=== PATIENT | male | born 1995 | race Caucasian/White ===

== ENCOUNTER 2021-05-05 21:28 | Emergency (ER) | payer BC ==
--- OUTSIDE RECORDS SUMMARY | 2021-05-05 21:30 | XMS REPORT | Continuity of Care Document ---
:1995 Author Organization [facility] t Address [address] [place] [address] Care Team Providers Name Role Phone Lab, Fam Pob I Attending Clinician Unavailable Doctor Unassigned, Name Attending Clinician Unavailable Problems This patient has no known problems. Allergies, Adverse Reactions, Alerts This patient has no known allergies or adverse reactions. Medications This patient has no known medications. Procedures This patient has no known procedures. Encounters Start End Encounter Admission Attending Care Care Encounter Source Date/Time Date/Time Type Type Clinicians Facility Department ID 2020-05-31 2020-05-31 Laboratory Lab, Adc [facility] [id number] 13:25:34 13:45:34 Only Fam Pob I Health [id number] [place] [id number] Professio [phone] [address] 2020-05-31 2020-05-31 Letter Doctor LEAH [id number] 00:00:00 00:00:00 (Out) UnassignedTATY [id number] [facility] [phone] [id number] Results This patient has no known results.
--- NOTE | 2021-05-05 23:40 | ER ---
Nurse's Notes [facility] Name: Mateo Ramirez Age: 25 yrs Sex: Male : 1995 Arrival Date: 05/05/2021 Time: 21:31 Bed 18 Private MD: Diagnosis: Contusion of left great toe with damage to nail Presentation: 05/05 21:40 Chief complaint: Patient states: I was walking down the stairs then I missed the step rr5 then bump my left big toe at the bottom. denies LOC. Coronavirus screen: Client denies travel out of the [place] in the last 14 days. At this time, the client does not indicate any symptoms associated with coronavirus-19. Ebola Screen: Patient negative for fever greater than or equal to 101.5 degrees Fahrenheit, and additional compatible Ebola Virus Disease symptoms Patient denies exposure to infectious person. Patient denies travel to an Ebola-affected area in the 21 days before illness onset. Initial Sepsis Screen: Does the patient meet any 2 criteria? No. Patient's initial sepsis screen is negative. Does the patient have a suspected source of infection? No. Patient's initial sepsis screen is negative. Risk Assessment: Do you want to hurt yourself or someone else? Patient reports no desire to harm self or others. Onset of symptoms was May 05, 2021 at 17:30. 21:40 Method Of Arrival: Ambulatory rr5 21:40 Acuity: ANGELO 3 rr5 Historical: - Allergies: 21:42 No Known Allergies; rr5 - Home Meds: 21:42 None [Active]; rr5 - PMHx: 21:42 None; rr5 - PSHx: 21:42 None; rr5 - Immunization history:: Adult Immunizations not up to date, Client reports having NOT received the Covid vaccine. - Social history:: Smoking status: unknown. Screenin:42 Abuse screen: Denies threats or abuse. Denies injuries from another. Nutritional rr5 screening: No deficits noted. Tuberculosis screening: No symptoms or risk factors identified. Fall Risk Gait- Impaired (20 pts.). Total Francisco Fall Scale indicates No Risk (0-24 pts). Assessment: 21:43 General: Appears in no apparent distress. uncomfortable, Behavior is calm, cooperative, rr5 appropriate for age. Pain: Complains of pain in left first toe Pain currently is 9 out of 10 on a pain scale. Quality of pain is described as aching, Pain began suddenly, Is intermittent. Neuro: Level of Consciousness is awake, alert, obeys commands, Oriented to person, place, time. Cardiovascular: Capillary refill < 3 seconds Patient's skin is warm and dry. Respiratory: Airway is patent Respiratory effort is even, unlabored, Respiratory pattern is regular, symmetrical. Derm: Bruising that is dark purple, on left first toe. Musculoskeletal: Capillary refill < 3 seconds, Swelling present in left first toe Reports pain in left first toe. 22:40 Reassessment: Patient appears in no apparent distress at this time. Patient is alert, rr5 oriented x 3, equal unlabored respirations, skin warm/dry/pink. 23:48 Reassessment: Patient appears in no apparent distress at this time. Patient is alert, rr5 oriented x 3, equal unlabored respirations, skin warm/dry/pink. discharge instruction given and explained without complaints made. Vital Signs: 21:40 BP 131 / 89; Pulse 95; Resp 19; Temp 98; Pulse Ox 99% ; Weight 81.65 kg; Height 5 ft. 2 rr5 in. (157.48 cm); Pain 9/10; 22:40 BP 125 / 70; Pulse 90; Resp 18; Pulse Ox 98% ; rr5 23:20 BP 121 / 65; Pulse 75; Resp 16; Pulse Ox 100% ; rr5 21:40 Body Mass Index 32.92 (81.65 kg, 157.48 cm) rr5 ED Course: 21:31 Patient arrived in ED. cf2 21:33 Tim De La Rosa, SCOTT is Primary Nurse. rr5 21:36 Shubham Wagner PA is PHCP. jmm 21:37 Chance Rodas MD is Attending Physician. jmm 21:41 Triage completed. rr5 21:42 Arm band placed on right wrist. rr5 21:42 Patient has correct armband on for positive identification. Bed in low position. Call rr5 light in reach. Pulse ox on. NIBP on. 22:21 Foot Left 3 View XRAY In Process Unspecified. EDMS 23:25 No provider procedures requiring assistance completed. Patient did not have IV access rr5 during this emergency room visit. body tape applied to first and second big toe. 23:39 Umair Hernández DPM is Referral Physician. krissy Administered Medications: 23:30 Drug: TORadol (ketorolac) 30 mg Route: IM; Site: left deltoid; rr5 23:49 Follow up: Response: No adverse reaction rr5 Outcome: 23:40 Discharge ordered by . krissy 23:47 Discharged to home ambulatory. rr5 23:47 Condition: stable 23:47 Discharge instructions given to patient, Instructed on discharge instructions, follow up and referral plans. medication usage, Demonstrated understanding of instructions, follow-up care, medications, Prescriptions given X 2. 23:49 Patient left the ED. rr5 Signatures: Dispatcher [employer] EDMS Shubham Wagner PA PA jmm Roque, Raymond, RN RN rr5 Leigh Watts cf2
--- NOTE | 2021-05-05 23:40 | EDPHYS ---
Physician Documentation [facility] Name: Mateo Ramirez Age: 25 yrs Sex: Male : 1995 Arrival Date: 05/05/2021 Time: 21:31 Bed 18 Private MD: ED Physician Chance Rodas HPI: 05/05 21:48 This 25 yrs old Male presents to ER via Ambulatory with complaints of Toe jmm Injury. 21:48 The patient presents with an injury, pain. Onset: The symptoms/episode began/occurred jmm acutely. Modifying factors: The symptoms are alleviated by elevation of extremity, the symptoms are aggravated by weight bearing, movement. Associated signs and symptoms: Pertinent negatives: fever. This is a 25 year old male with no chronic medical conditions that presents to the ED with complaints of left great toe pain after hyperflexing walking down stairs. Denies other known injury. . Historical: - Allergies: 21:42 No Known Allergies; rr5 - Home Meds: 21:42 None [Active]; rr5 - PMHx: 21:42 None; rr5 - PSHx: 21:42 None; rr5 - Immunization history:: Adult Immunizations not up to date, Client reports having NOT received the Covid vaccine. - Social history:: Smoking status: unknown. ROS: 21:48 Constitutional: Negative for fever, chills, and weight loss, Cardiovascular: Negative jmm for chest pain, palpitations, and edema, Respiratory: Negative for shortness of breath, cough, wheezing, and pleuritic chest pain. 21:48 MS/extremity: Positive for injury or acute deformity, pain. 21:48 All other systems are negative. Exam: 21:48 Constitutional: This is a well developed, well nourished patient who is awake, alert, jmm and in no acute distress. Head/Face: atraumatic. Eyes: EOMI, no conjunctival erythema appreciated ENT: Moist Mucus Membranes Neck: Trachea midline, Supple Chest/axilla: Normal chest wall appearance and motion. Cardiovascular: Regular rate and rhythm. No edema appreciated Respiratory: Normal respirations, no respiratory distress appreciated Abdomen/GI: Non distended, soft Back: Normal ROM 21:48 Musculoskeletal/extremity: < 2 sec dist cap refill noted to the left great toe. 21:48 Skin: ecchymosis noted to the left great toe. 21:48 Neuro: Orientation: is normal, Mentation: is normal, Memory: is normal. 21:48 Psych: Behavior/mood is pleasant, cooperative. Vital Signs: 21:40 BP 131 / 89; Pulse 95; Resp 19; Temp 98; Pulse Ox 99% ; Weight 81.65 kg; Height 5 ft. 2 rr5 in. (157.48 cm); Pain 9/10; 22:40 BP 125 / 70; Pulse 90; Resp 18; Pulse Ox 98% ; rr5 23:20 BP 121 / 65; Pulse 75; Resp 16; Pulse Ox 100% ; rr5 21:40 Body Mass Index 32.92 (81.65 kg, 157.48 cm) rr5 MDM: 22:13 Patient medically screened. m 23:38 Data reviewed: vital signs, nurses notes. Counseling: I had a detailed discussion with krissy the patient and/or guardian regarding: the historical points, exam findings, and any diagnostic results supporting the discharge/admit diagnosis, radiology results, the need for outpatient follow up, to return to the emergency department if symptoms worsen or persist or if there are any questions or concerns that arise at home. 05/05 21:48 Order name: Foot Left 3 View XRAY rr5 Administered Medications: 23:30 Drug: TORadol (ketorolac) 30 mg Route: IM; Site: left deltoid; rr5 23:49 Follow up: Response: No adverse reaction rr5 Disposition: 05/06 06:37 Co-signature as Attending Physician, Chance Rodas MD. [email or web address] Disposition: 05/05/21 23:40 Discharged to Home. Impression: Contusion of left great toe with damage to nail. - Condition is Stable. - Discharge Instructions: Contusion. - Prescriptions for Ibuprofen 800 mg Oral Tablet - take 1 tablet by ORAL route every 8 hours As needed take with food; 30 tablet. orphenadrine citrate 100 mg Oral Tablet Sustained Release - take 1 tablet by ORAL route 2 times per day As needed; 20 tablet. - Work release form, Medication Reconciliation Form, Thank You Letter, Antibiotic Education, Prescription Opioid Use form. - Follow up: Umair Hernández DPM; When: 2 - 3 days; Reason: Recheck today's complaints, Continuance of care, Re-evaluation by your physician. Signatures: Dispatcher [employer] EDMS Shubham Wagner PA PA jmm Roque, Raymond, RN RN rr5 Chance Rodas MD MD [email or web address] Corrections: (The following items were deleted from the chart) 05/05 23:49 23:40 05/05/2021 23:40 Discharged to Home. Impression: Contusion of left great toe with rr5 damage to nail. Condition is Stable. Forms are Medication Reconciliation Form, Thank You Letter, Antibiotic Education, Prescription Opioid Use. Follow up: Dr. Umair Hernández; When: 2 - 3 days; Reason: Recheck today's complaints, Continuance of care, Re-evaluation by your physician. krissy
[2021-05-05] MEDS ORDERED: KETOROLAC 30 MG/ML INJ ONE (23:48)
[2021-05-05 23:54] VITALS: TEMP 98
[2021-05-05 23:58] VITALS: BP 121/65; O2SAT 100
--- NOTE | 2021-05-06 10:56 | RAD REPORT ---
EXAM DESCRIPTION: RAD - Foot Left 3 View - 05/05/2021 10:22 pm CLINICAL HISTORY: Left Foot pain status post injury FINDINGS: No fracture or dislocation is seen. Prominent spur extends off of the dorsal aspect of the midfoot
== END 2021-05-05 23:49 | disposition home or self-care (01) ==
LOC: ER 21:28
DX: S90.212A Contusion of left great toe with damage to nail, initial encounter (principal); X58.XXXA Exposure to other specified factors, initial encounter
CPT/HCPCS: 96372; 99284